=== PATIENT | female | born 1950 | race Caucasian/White ===

== ENCOUNTER 2017-12-13 09:08 | Day surgery (SDC) | payer MEDICARE, BC ==
[~2017-12-13 09:08] MED LIST: EPINEPHrine 1 MG/ML SDV ONE; Lactated Ringers 1,000 ML IV SCH; Lidocaine 1%/Sod Bicarbonate in NS 8.4% 1 ML Syringe IDERM PRN; Ropivacaine 0.5% 5 MG/ML 30 ML SDV ONE; Sodium Chloride 0.9% 10 ML Syringe FLUSH PRN
[2017-12-13] MEDS ORDERED: EPINEPHrine 1 MG/ML 30 ML MDV IV ONE (09:15)
[2017-12-13] MEDS ORDERED: fentaNYL 100 MCG/2 ML SDV ONE (09:31)
[2017-12-13] MEDS ORDERED: Midazolam 1 MG/ML 2 ML SDV ONE (09:32)
[2017-12-13] MEDS ORDERED: Propofol 200 MG/20 ML SDV ONE ×2 (09:32→12:02)
[2017-12-13] MEDS ORDERED: Ondansetron 4 MG/2 ML SDV ONE (09:35)
[2017-12-13] MEDS ORDERED: Dexamethasone 4 MG/ML 5 ML MDV ONE ×2 (09:35→11:57)
[2017-12-13] MEDS ORDERED: Lidocaine 1% 6 ML ONE (09:35)
--- NOTE | 2017-12-13 09:54 | PCM.PREANE ---
Preanesthetic Assessment - Procedure Proposed Procedure: Right SVA, RCR, and SA - Anesthesia/Transfusion/Family Hx Anesthesia History: Prior Anesthesia Without Reaction Family History of Anesthesia Reaction: No Transfusion History: Prior Transfusion Reaction (fever and chills) Intubation History: Unknown - Review of Systems General: No Symptoms Pulmonary: No Symptoms Cardiovascular: Other (HTN, HLD) Gastrointestinal: No Symptoms Neurological: No Symptoms Other: Reports: None - Physical Assessment NPO Status Date: 12/12/17 NPO Status Time: 19:00 Pulse: 65 O2 Sat by Pulse Oximetry: 96 Respiratory Rate: 18 Blood Pressure: 148/79 Temperature: 36.5 C Height: 1.63 m Weight: 112 kg ASA Class: 2 Mental Status: Alert & Oriented x3 Airway Class: Mallampati = 3 Dentition: Reports: Normal Dentition Thyro-Mental Finger Breadths: 3 Mouth Opening Finger Breadths: 3 ROM/Head Extension: Full Lungs: Clear to Auscultation, Normal Respiratory Effort Cardiovascular: Regular Rate, Regular Rhythm - Lab Values: Laboratory Last Values MRSA (PCR) Negative 12/12/17 11:47 - Allergies Allergies/Adverse Reactions: Allergies Allergy/AdvReac Type Severity Reaction Status Date / Time rodriguez Allergy Airway Verified 12/12/17 15:33 Tightness - Blood Blood Available: No Product(s) Available: None - Anesthesia Plan Pre-Op Medication Ordered: None - Acknowledgements Anesthesia Type Planned: General Anesthesia (LMA), Regional Block (Right ISNB) Pt an Appropriate Candidate for the Planned Anesthesia: Yes Alternatives and Risks of Anesthesia Discussed w Pt/Guardian: Yes Pt/Guardian Understands and Agrees with Anesthesia Plan: Yes PreAnesthesia Questionnaire HEENT History: Reports: Impaired Vision Cardiovascular History: Reports: High Cholesterol, Hypertension, Other (See Below) Other Cardiovascular History: heart catheterization, stress test, edema Respiratory History: Reports: SOB, Other (See Below) Other Respiratory History: dypsnea Gastrointestinal History: Reports: None Genitourinary History: Reports: None PODODERMATOLOGIST History: Reports: None Musculoskeletal History: Reports: Other (See Below) Other Musculoskeletal History: right trapezius muscle strain, right shoulder pain Neurological History: Reports: Vertigo, Other (See Below) Other Neuro History: pre-syncope, BPPV Psychiatric History: Reports: Other (See Below) Other Psychiatric History: fatigue Endocrine/Metabolic History: Reports: Vitamin D Deficiency Hematologic History: Reports: None Immunologic History: Reports: None Oncologic (Cancer) History: Reports: None Dermatologic History: Reports: Other (See Below) Other Dermatologic History: seborrheic keratosis - Past Surgical History Head Surgeries/Procedures: Reports: None HEENT Surgical History: Reports: None Cardiovascular Surgical History: Reports: None Respiratory Surgical History: Reports: None GI Surgical History: Reports: Colonoscopy Female Surgical History: Reports: Hysterectomy Male Surgical History: Reports: None Endocrine Surgical History: Reports: None Neurological Surgical History: Reports: None Musculoskeletal Surgical History: Reports: None Oncologic Surgical History: Reports: None - SUBSTANCE USE Smoking Status *Q: Never Smoker Recreational Drug Use History: No - HOME MEDS Home Medications: Home Meds Aspirin [Halfprin] 162 mg PO DAILY 12/12/17 [History] Glucosam/Msm/Vit C/Rahat/Hrb#21 [Glucosamine-MSM Complex] 1 tab PO BID 12/12/17 [ History] Lisinopril/Hydrochlorothiazide [Lisinopril-Hctz 20-12.5 mg Tab] 1 tab PO DAILY 12/12/17 [History] Simvastatin 40 mg PO DAILY 12/12/17 [History] Acetaminophen/HYDROcodone [Orbisonia 325-5 MG] 1 - 2 tab PO Q6H PRN #40 tablet 12/13 [Rx] Cyclobenzaprine [Flexeril] 10 mg PO Q8H PRN #40 tab 12/13/17 [Rx] - CURRENT (IN HOUSE) MEDS Current Meds: Current Medications Lactated Ringer's (Ringers, Lactated) 1,000 mls @ 125 mls/hr IV ASDIRECTED LALITHA Stop: 12/13/17 23:00 Lidocaine/Sodium Bicarbonate (Buffered Lidocaine 1% In Ns 8.4%) 0.25 ml IDERM ONETIME PRN PRN Reason: Prior to IV Start Stop: 12/13/17 18:00 Sodium Chloride (Saline Flush) 10 ml FLUSH ASDIRECTED PRN PRN Reason: Keep Vein Open Stop: 12/13/17 18:00 Discontinued Medications Dexamethasone (Dexamethasone) Confirm Administered Dose 20 mg .ROUTE .STK-MED ONE Stop: 12/13/17 09:36 Epinephrine HCl (Adrenalin) Confirm Administered Dose 1 mg .ROUTE .STK-MED ONE Stop: 03/08/18 06:03 Epinephrine HCl (Adrenalin) 3 mg IV ONETIME ONE Stop: 12/13/17 09:16 Fentanyl (Sublimaze) Confirm Administered Dose 100 mcg .ROUTE .STK-MED ONE Stop: 12/13/17 09:32 Lidocaine HCl (Xylocaine-Mpf 1%) Confirm Administered Dose 6 mls @ as directed .ROUTE .STK-MED ONE Stop: 12/13/17 09:36 Midazolam HCl (Versed 1 Mg/Ml) Confirm Administered Dose 2 mg .ROUTE .STK-MED ONE Stop: 12/13/17 09:33 Ondansetron HCl (Zofran) Confirm Administered Dose 4 mg .ROUTE .STK-MED ONE Stop: 12/13/17 09:36 Propofol (Diprivan 20 Ml) Confirm Administered Dose 200 mg .ROUTE .STK-MED ONE Stop: 12/13/17 09:33 Ropivacaine (Naropin 0.5%) Confirm Administered Dose 30 ml .ROUTE .STK-MED ONE Stop: 12/13/17 06:03
[2017-12-13] MEDS ORDERED: Bupivacaine 0.25% 10 ML SDV ONE (10:38)
--- NOTE | 2017-12-13 11:01 | PCM.SN ---
- Free Text/Narrative Note: Right Interscalene nerve block Date: 12/13/2017 Time Out: 1013 Start: 1017 Stop: 1023 Surgical Procedure: Right Shoulder Video Arthroscopy with Rotator Cuff Repair, and Subacromial Decompression. Diagnosis Right Shoulder Rotator Cuff Tear Current Procedure: Right interscalene block under US guidance for postoperative pain control requested by Dr. Moore. Patient chart reviewed, risk/benefits discussed with patient, consent obtained. Patient positioned supine, monitors/alarms on, oxygen placed via nasal cannula at 2 LPM. IV sedation administered: Versed 1mg IV Fentanyl 100mcg IV Right shoulder prepped with a chloroprep. Sterile drapes placed with aseptic technique noted. Under US guidance, right subclavian artery visualized along with the right brachial plexus. Plexus followed up to C6 cricoid level, and area localized with 2mls of 1% lidocaine. 22gauge 2 inch stimiplex needle advanced under US with 0.6mV with stimulation of biceps/wrist. Good stimulation noted with decreased voltage and absent at 0.2mVs. 1ml of Normal Saline injected with loss of stimulation. Incremental dosing of 5mls with negative aspiration prior to each injection of 0.5% ropivacaine with 1:200,000 epinephrine. Total volume=25mls. Please refer to nurses notes for vital signs. Scooter Spear CRNA
[2017-12-13] MEDS ORDERED: ceFAZolin 1 GM Vial ONE (11:57)
[2017-12-13] MEDS ORDERED: Haloperidol Lactate 5 MG/ML SDV IVPUSH ONE (12:22)
[2017-12-13] MEDS ORDERED: fentaNYL 100 MCG/2 ML SDV IVPUSH PRN (12:22)
[2017-12-13] MEDS ORDERED: HYDROmorphone 0.5 MG/0.5 ML SYRINGE IV PRN (12:22)
[2017-12-13] MEDS ORDERED: Albuterol 6.7 GM Inhaler INH ONE (12:41)
[2017-12-13] MEDS ORDERED: Glycopyrrolate 0.2 MG/ML SDV ONE (12:51)
[2017-12-13] MEDS ORDERED: Neostigmine Methylsulfate 10 MG/10 ML MDV ONE (12:51)
--- NOTE | 2017-12-13 13:16 | PCM.POSTAN ---
POST ANESTHESIA ASSESSMENT - MENTAL STATUS Mental Status: Alert, Oriented - VITAL SIGNS Pulse Rate: 66 SaO2: 100 Resp Rate: 12 Blood Pressure: 160/96 Temperature: 36.1 C - RESPIRATORY Respiratory Status: Respiratory Rate WNL, Airway Patent, O2 Saturation Stable, Supplemental Oxygen - CARDIOVASCULAR CV Status: Pulse Rate WNL, Blood Pressure Stable - GASTROINTESTINAL GI Status: No Symptoms - PAIN Pain Score: 0 - POST OP HYDRATION Hydration Status: Adequate & Stable
--- NOTE | 2017-12-13 13:55 | PCM48HPAN ---
Post Anesthesia Note - EVALUATION WITHIN 48HRS OF ANESTHETIC Vital Signs in Normal Range: Yes Patient Participated in Evaluation: Yes Respiratory Function Stable: Yes Airway Patent: Yes Cardiovascular Function Stable: Yes Hydration Status Stable: Yes Pain Control Satisfactory: Yes Nausea and Vomiting Control Satisfactory: Yes Mental Status Recovered: Yes Pulse Rate: 66 SaO2: 100 Resp Rate: 18 Temperature: 36.1 C Blood Pressure: 160/96
--- NOTE | 2017-12-19 07:11 | PCM.OPNOTE ---
- General Post-Op/Procedure Note Date of Surgery/Procedure: 12/13/17 Operative Procedure(s): right shoulder video arthroscopy with rotator cuff repair, subacromial decompression and biceps tenodesis with limited debridement Pre Op Diagnosis: right shoulder rotator cuff tear with impingement Post-Op Diagnosis: same with biceps tendinopathy Anesthesia Technique: General ET Tube, Regional Block Primary Surgeon: Royal Moore Anesthesia Provider: Estela Ramirez Engineering [employer] Scientific Programmer: Pennie Jules in mLs: 5 Complications: None Condition: Good
--- NOTE | 2017-12-19 07:54 | OR ---
DATE OF OPERATION: 12/13/2017 SURGEON: Royal Moore MD OPERATION PERFORMED: Right shoulder video arthroscopy with rotator cuff repair, subacromial decompression, biceps tenodesis with limited debridement. PREOPERATIVE DIAGNOSIS: Right shoulder rotator cuff tear with impingement. POSTOPERATIVE DIAGNOSIS: Right shoulder rotator cuff tear with impingement with biceps tendinopathy. ANESTHESIA: General endotracheal intubation with regional interscalene block. ANESTHESIA PROVIDER: Mare Woodson. PULL OUT OPERATOR: Pennie Jules PA-C. ESTIMATED BLOOD LOSS: Less than 5 mL. COMPLICATIONS: None. CONDITION: Stable. DESCRIPTION OF PROCEDURE: The patient was identified in the preop holding area. Proper site was marked and identified by the surgeon. The patient was taken back to the operating theater where after adequate anesthesia, the patient was placed in a lazy left lateral decubitus position. All bony prominences were well padded. Wedge was placed posteriorly. The patient was secured to the table. The patient's right shoulder was then sterilely prepped and draped in the usual sterile fashion. OR time-out was performed. The patient received 2 g IV Ancef. At this time, right upper extremity had 12 pounds of traction applied. Standard posterior incision was made and scope trocar was then introduced in the glenohumeral joint. There were no signs of chondromalacia. The patient did have significant fraying and biceps tendinopathy noted. With the use of a spinal needle, an anterior portal was then created. A FiberWire was then passed through the biceps tendon with the use of a spinal needle and biceps tenotomy was performed for later tenodesis in the rotator interval. At this time, attention was turned to the subacromial space. At this time, there was noted to be significant bursa and bursectomy and debridement was done of the subacromial space. The patient was noted to have a large U-shaped tear on the anterior portion supraspinatus. At this time, good bony bleeding bed was prepared using a full radius resector. Once this was done, a 4.75 SwiveLock Arthrex anchor was then placed on the medial portion of the footprint. Two limbs of FiberWire and 2 limbs of FiberTape were then placed starting anterior to posterior. The 2 limbs of FiberWire were then tied arthroscopically and then all 4 limbs were brought out laterally through another 4.75 SwiveLock anchor. A punch was used out laterally for this and then another 4.75 Arthrex SwiveLock anchor was placed laterally. Tension was applied and there was good anatomic confucianism of the footprint. Once this was completed, a subacromial decompression was then performed. The patient had a type 2 acromion and this was resected using a 4-0 full-radius bur back to a smooth border with the posterior portion performing an acromioplasty which was then there was significant opening of the subacromial space. All bony fragments as well as loose soft tissue was debrided out of the subacromial space at this point. The patient was noted to have a good smooth border to the undersurface of the acromion. At this time, excess saline was drained from the shoulder. A 3-0 nylon simple suture used for closure of the skin. The patient was placed in a sterile soft dressing and a pillow sling, and sent to PACU in stable condition. MITESH /[id number]
== END 2017-12-13 15:11 | disposition home or self-care (01) ==
LOC: JD.SDS 09:08
PROVIDERS: ATTEND Orthopaedic Surgery
DX: M75.101 Unspecified rotator cuff tear or rupture of right shoulder, not specified as traumatic (principal); M75.41 Impingement syndrome of right shoulder; M75.21 Bicipital tendinitis, right shoulder; I10 Essential (primary) hypertension; E78.5 Hyperlipidemia, unspecified; Z88.8 Allergy status to other drugs, medicaments and biological substances; E55.9 Vitamin D deficiency, unspecified; Z79.82 Long term (current) use of aspirin; Z79.899 Other long term (current) drug therapy; Z90.710 Acquired absence of both cervix and uterus
CPT/HCPCS: 29822; 29826; 29827; 29828; 64415; 87641; A9270; C1713; J0171; J0690; J1100; J2250; J2405; J2710; J2795; J3010; J3490; J7120; J2704